=== PATIENT | male | born 1990 | race Two or more races ===

== ENCOUNTER 2021-11-28 07:38 | Outpatient (CLI) | payer OTHER, SELFPAY ==
[2021-11-28 08:33] LABS: SARS-CoV-2 RNA PCR Negative (Negative)
== END 2021-11-28 07:39 | disposition home or self-care (01) ==
PROVIDERS: PCP Nurse Practitioner Family; Visit Provider Nurse Practitioner Family
DX: Z20.822 Contact with and (suspected) exposure to COVID-19 (principal)
CPT/HCPCS: C9803; U0003; U0005